=== PATIENT | male | born 1970 | race Two or more races ===

== ENCOUNTER 2017-05-31 19:30 | Emergency (ER) | payer MEDICAID, OTHER ==
[~2017-05-31] VITALS: Ht 177.8 cm; Wt 86.5 kg
[2017-05-31 19:52] LABS: HEMATOCRIT 51.7 % (39.2-51.8); HEMOGLOBIN 17.5 g/dL (13.7-18.0); WHITE BLOOD COUNT 11.4 x10^3/uL (3.4-10)
[2017-05-31] MEDS ORDERED: SODIUM CHLORIDE 0.9% 1,000ML IVBOLUS ONE (20:00)
[2017-05-31] MEDS ORDERED: SODIUM CHLORIDE FLUSH 10ML SYR IVF ONE (20:00)
[2017-05-31 20:04] LABS: ASPARTATE AMINO TRANSFERASE 18 U/L (15-37); BLOOD UREA NITROGEN 14 mg/dL (7-18)
[2017-05-31] MEDS ORDERED: AZITHROMYCIN 500 MG TABLET PO ONE (21:30)
[2017-05-31] MEDS ORDERED: CEFTRIAXONE 250 MG IM ONE (21:30)
[2017-05-31] MEDS ORDERED: CEFTRIAXONE 250 MG ONE (21:49)
[2017-05-31] MEDS ORDERED: LIDOCAINE 1%, 20ML ONE (21:49)
[2017-05-31] MEDS ORDERED: AZITHROMYCIN 250 MG TABLET ONE (21:50)
[2017-05-31 22:11] VITALS: BP 123/86
== END 2017-05-31 22:14 | disposition home or self-care (01) ==
LOC: ED 21:25
DX: M54.5 Low back pain (principal); R30.0 Dysuria; E11.9 Type 2 diabetes mellitus without complications
CPT/HCPCS: 36415; 80053; 81003; 85025; 96372; 99284; J0696

== ENCOUNTER 2020-10-11 03:08 | Emergency (ER) | payer MEDICAID ==
[~2020-10-11] VITALS: Ht 177.8 cm; Wt 95.8 kg
[2020-10-11 03:52] LABS: MICROSCOPIC NOT IND
[2020-10-11 04:33] LABS: ALANINE AMINOTRANSFERASE 94 U/L (12-78); ANION GAP 11 mmol/L (5-15); CALCIUM 8.8 mg/dL (8.5-10.1); CHLORIDE 104 mmol/L (98-107); CREATININE 1.09 mg/dL (0.7-1.3)
[2020-10-11 04:35] LABS: ALKALINE PHOSPHATASE 83 U/L (45-117); BILIRUBIN,TOTAL 0.7 mg/dL (0.2-1.0); TOTAL PROTEIN 7.7 g/dL (6.4-8.2)
--- NOTE | 2020-10-11 04:38 | NUR ---
Pt to ER with c/o abd pain, states he feels constipated, has not had a normal BM in 7 days. Pt states taking Milk of mag with no relief.
[2020-10-11 04:41] LABS: BASOPHILS % (AUTO) 1 % (0-1); EOSINOPHILS % (AUTO) 5 % (1-7); LYMPHOCYTES % (AUTO) 26 % (22-44); MEAN CORPUSCULAR HEMOGLOBIN 31.9 pg (27.5-34.5); MEAN CORPUSCULAR HGB CONC 34.8 g/dL (33.2-36.2); MEAN PLATELET VOLUME 8.7 fL (7.4-10.4); MONOCYTES % (AUTO) 8 % (2-9); NEUTROPHILS % (AUTO) 60 % (42-75); PLATELET COUNT 156 x10^3/uL (130-400); RED CELL DISTRIBUTION WIDTH 13.1 % (9.4-14.8)
[2020-10-11 04:48] LABS: MD NO
[2020-10-11] MEDS ORDERED: GOLYTELY 4,000ML ORAL.SOL PO ONE (05:30)
[2020-10-11 05:58] VITALS: BP 125/81
--- NOTE | 2020-10-11 05:59 | NUR ---
Pt dc'd home with written and verbal instructions. Pt home with hailey, and instructions given. Pt states understanding. Pt ambulatory out of ED without difficulty.
== END 2020-10-11 06:01 | disposition home or self-care (01) ==
LOC: ED 05:44
DX: R10.84 Generalized abdominal pain (principal); K59.00 Constipation, unspecified; E11.9 Type 2 diabetes mellitus without complications
CPT/HCPCS: 36415; 74021; 80053; 81003; 83690; 85025; 99284